=== PATIENT | male | born 1970 | race Caucasian/White ===

== ENCOUNTER 2017-04-27 12:48 | Emergency (ER) | payer OTHER ==
[~2017-04-27] VITALS: Ht 172.7 cm; Wt 108.2 kg
[~2017-04-27 12:48] MED LIST: LEVO50TA5 PO
[2017-04-27 14:33] LABS: PATH.CAST-FLAG NOT PRESENT; SPERM-FLAG NOT PRESENT; SRC-FLAG NOT PRESENT; XTAL-FLAG NOT PRESENT; YLC-FLAG NOT PRESENT
[2017-04-27] MEDS ORDERED: KETOROLAC 30 MG/1 ML ONE (15:19)
[2017-04-27] MEDS ORDERED: CYCLOBENZAPRINE 10 MG TABLET ONE (15:19)
[2017-04-27] MEDS ORDERED: CYCLOBENZAPRINE 10 MG TABLET PO ONE (15:30)
[2017-04-27] MEDS ORDERED: KETOROLAC 30 MG/1 ML IM ONE (15:30)
[2017-04-27 15:39] LABS: HEMATOCRIT 47.1 % (39.2-51.8); HEMOGLOBIN 15.5 g/dL (13.7-18.0); WHITE BLOOD COUNT 7.7 x10^3/uL (3.4-10)
[2017-04-27 15:46] LABS: BLOOD UREA NITROGEN 14 mg/dL (7-18)
[2017-04-27 17:15] VITALS: BP 109/76
== END 2017-04-27 17:18 | disposition home or self-care (01) ==
LOC: ED 17:12
DX: M54.5 Low back pain (principal); N28.9 Disorder of kidney and ureter, unspecified
CPT/HCPCS: 36415; 74000; 80048; 81001; 82040; 85025; 96372; 99285; J1885

== ENCOUNTER 2017-11-07 15:05 | Emergency (ER) | payer OTHER ==
[~2017-11-07] VITALS: Ht 172.7 cm; Wt 100.0 kg
[2017-11-07 15:11] VITALS: BP 124/85
[2017-11-07] MEDS ORDERED: KETOROLAC 30 MG/1 ML IM ONE (15:30)
[2017-11-07] MEDS ORDERED: KETOROLAC 30 MG/1 ML ONE (15:30)
== END 2017-11-07 17:23 | disposition home or self-care (01) ==
LOC: ED 17:17
DX: S39.012A Strain of muscle, fascia and tendon of lower back, initial encounter (principal); M54.16 Radiculopathy, lumbar region; E03.9 Hypothyroidism, unspecified; W01.0XXA Fall on same level from slipping, tripping and stumbling without subsequent striking against object, initial encounter; Y93.89 Activity, other specified; Y92.481 Parking lot as the place of occurrence of the external cause; Y99.8 Other external cause status
CPT/HCPCS: 72110; 96372; 99284; J1885

== ENCOUNTER 2018-04-29 17:26 | Emergency (ER) | payer OTHER ==
[~2018-04-29] VITALS: Ht 172.7 cm; Wt 107.0 kg
[2018-04-29 17:28] VITALS: BP 128/75
[2018-04-29] MEDS ORDERED: IBUPROFEN 200 MG TABLET ONE (17:47)
[2018-04-29] MEDS ORDERED: IBUPROFEN 200 MG TABLET PO ONE (18:00)
== END 2018-04-29 19:17 | disposition home or self-care (01) ==
LOC: ED 18:00
DX: S83.015A Lateral dislocation of left patella, initial encounter (principal); E03.9 Hypothyroidism, unspecified; X50.1XXA Overexertion from prolonged static or awkward postures, initial encounter; Y93.89 Activity, other specified; Y99.8 Other external cause status; Y92.099 Unspecified place in other non-institutional residence as the place of occurrence of the external cause
CPT/HCPCS: 29505; 99284

== ENCOUNTER 2021-03-21 02:16 | Emergency (ER) | payer OTHER ==
[~2021-03-21] VITALS: Ht 170.2 cm; Wt 97.0 kg
--- NOTE | 2021-03-21 03:36 | NUR ---
ASSUMED CARE OF PT. HE IS HERE D/T CO OF PAIN AND SWELLING IN HIS RIGHT LOWER AND UPPER ABDOMINAL AREA, AND REFERRED PAIN TO THE RIGHT SIDE OF HIS BACK. THIS STARTED ABOUT 1230. HE DENIES N/V. PT IN GOWN, HOOKED TO MONITOR. VSS. NADN. CALL LIGHT W/IN REACH.
[2021-03-21] MEDS ORDERED: ONDANSETRON 2MG/ML, 2ML IVPush ONE (04:00)
[2021-03-21] MEDS ORDERED: SODIUM CHLORIDE 0.9% 1,000ML IVBOLUS ONE (04:00)
[2021-03-21] MEDS ORDERED: SODIUM CHLORIDE FLUSH 10ML SYR IVF ONE (04:00)
[2021-03-21] MEDS ORDERED: MORPHINE SULFATE 4 MG/ML, 1ML IVPush PRN (04:00)
--- NOTE | 2021-03-21 04:05 | NUR ---
PIV STARTED, VSS (PT SARAH, THIS IS HIS NORM), PERFECTON. SON AT BEDSIDE, CALL LIGHT W/IN REACH.
[2021-03-21] MEDS ORDERED: MORPHINE SULFATE 4 MG/ML, 1ML ONE (04:07)
[2021-03-21] MEDS ORDERED: ONDANSETRON 2MG/ML, 2ML ONE (04:07)
[2021-03-21 04:13] LABS: BASOPHILS % (AUTO) 1 % (0-1); EOSINOPHILS % (AUTO) 5 % (1-7); LYMPHOCYTES % (AUTO) 34 % (22-44); MEAN CORPUSCULAR HEMOGLOBIN 32.7 pg (27.5-34.5); MEAN CORPUSCULAR HGB CONC 34.4 g/dL (33.2-36.2); MEAN PLATELET VOLUME 7.6 fL (7.4-10.4); MONOCYTES % (AUTO) 10 % (2-9); NEUTROPHILS % (AUTO) 49 % (42-75); PLATELET COUNT 231 x10^3/uL (130-400); RED BLOOD COUNT 4.48 x10^6/uL (4.38-5.82); RED CELL DISTRIBUTION WIDTH 13.3 % (9.4-14.8)
[2021-03-21 04:23] LABS: ALANINE AMINOTRANSFERASE 33 U/L (12-78); ALBUMIN 3.6 g/dL (3.4-5.0); ANION GAP 5 mmol/L (5-15); CALCIUM 8.3 mg/dL (8.5-10.1); CHLORIDE 112 mmol/L (98-107)
[2021-03-21 04:25] LABS: ALKALINE PHOSPHATASE 106 U/L (45-117); BILIRUBIN,TOTAL 0.5 mg/dL (0.2-1.0); TOTAL PROTEIN 6.6 g/dL (6.4-8.2)
--- NOTE | 2021-03-21 04:38 | NUR ---
ANOTHER PIV STARTED, PT PREVIOUS ONE PAINFUL PER PT. PT MEDICATED PER NOV. VSS, NADN. CALL LIGHT W/IN REACH.
--- NOTE | 2021-03-21 04:51 | NUR ---
PT TO CT
[2021-03-21] MEDS ORDERED: OMNIPAQUE 350 MG/ML, 100ML BOTTLE ONE (04:56)
--- NOTE | 2021-03-21 05:03 | NUR ---
pt back from CT, hooked to monitors VSS. Pt able to provide urine sample, this was collected and tubed to lab. Pt reports pain improved, 6/10 is drowsy. Pt denies any needs. call light w/in reach.
[2021-03-21 05:22] LABS: MICROSCOPIC NOT IND
--- NOTE | 2021-03-21 07:10 | NUR ---
pt sleeping on gurney, son bedside. explained waiting for CT be read to determine poc. vss, nadn, call light w/in reach.
--- NOTE | 2021-03-21 07:39 | NUR ---
COUNTER CHECKER CALLED CT, AND THEY WILL BRING PRINT OUT OF READ CT. PT UPDATED REGARDING THIS.
--- NOTE | 2021-03-21 08:01 | NUR ---
PT RESTING ON GURNEY EYES CLOSED, NADN, CALL LIGHT W/IN REACH
[2021-03-21 08:04] VITALS: BP 110/71
--- NOTE | 2021-03-21 08:52 | NUR ---
Patient given discharge instructions and they have confirmed that they understand the instructions. Patient ambulatory with steady gait.
== END 2021-03-21 09:18 | disposition home or self-care (01) ==
LOC: ED 08:10
DX: R10.84 Generalized abdominal pain (principal); I88.0 Nonspecific mesenteric lymphadenitis
CPT/HCPCS: 36415; 74177; 80053; 81003; 83690; 85025; 96361; 96374; 96375; 99285; J2270; J2405; J7030; Q9967